=== PATIENT | male | born 1995 | race Caucasian/White ===

== ENCOUNTER 2020-01-06 05:17 | Emergency (ER) | payer OTHER ==
[~2020-01-06] VITALS: Ht 180.3 cm; Wt 70.0 kg
--- NOTE | 2020-01-06 05:32 | NUR ---
PT STATES HE'S THROWN UP 3-4 TIMES, "AT FIRST UNDIGESTED FOOD, THEN BILE," HAS NOT THROWN UP SINCE ZOFRAN IN ROUTE. PT ALSO COMPLAINING OF LOOSE STOOLS X4, NORMAL IN COLOR. PT DENIES URINARY SYMPTOMS. PT HAS ABD PAIN THAT IS NOT WORSE WITH PALPATION CENTRALLY LOCATED AROUND HIS UMBILLICUS THAT HE DESCRIBES CRAMPING. PT IS IN NO ACUTE DISTRESS, RESPIRATIONS EVEN AND UNLABORED. CONNECTED TO BP AND O2 MONITORS, BED RAILS UP X2, CALL LIGHT IN REACH.
[2020-01-06] MEDS ORDERED: KETOROLAC 30 MG/1 ML ONE (05:41)
[2020-01-06] MEDS ORDERED: FAMOTIDINE 20 MG/2 ML ONE (05:42)
[2020-01-06] MEDS ORDERED: FAMOTIDINE 20 MG/2 ML IVPush ONE (06:00)
[2020-01-06] MEDS ORDERED: KETOROLAC 30 MG/1 ML IVPush ONE (06:00)
[2020-01-06] MEDS ORDERED: SODIUM CHLORIDE 0.9% 1,000ML IVBOLUS ONE (06:00)
--- NOTE | 2020-01-06 06:33 | NUR ---
PT GIVEN WATER FOR PO CHALLENGE.
--- NOTE | 2020-01-06 06:48 | NUR ---
PT ABLE TO KEEP WATER DOWN FOR PO CHALLENGE.
[2020-01-06 06:50] VITALS: BP 116/68
--- NOTE | 2020-01-06 07:01 | NUR ---
REPORT GIVEN TO SHELIA ABERNATHY.
== END 2020-01-06 07:30 | disposition home or self-care (01) ==
LOC: ED 06:32
DX: A08.4 Viral intestinal infection, unspecified (principal); R11.2 Nausea with vomiting, unspecified
CPT/HCPCS: 96361; 96374; 96375; 99284; J1885; J3490; J7030